=== PATIENT | female | born 1990 | race Caucasian/White ===

== ENCOUNTER 2016-05-06 19:59 | Emergency (ER) | payer SELFPAY | END 2016-05-06 20:11 | disposition left against medical advice (07) | LOC: UCCORT 19:59 | DX: M79.1 Myalgia (principal); R05 Cough; Z53.21 Procedure and treatment not carried out due to patient leaving prior to being seen by health care provider ==

== ENCOUNTER 2016-05-06 20:28 | Emergency (ER) | payer SELFPAY | END 2016-05-06 20:41 | disposition left against medical advice (07) | LOC: UCCORT 20:28 | DX: M79.1 Myalgia (principal); R05 Cough; R09.89 Other specified symptoms and signs involving the circulatory and respiratory systems; Z53.21 Procedure and treatment not carried out due to patient leaving prior to being seen by health care provider ==

== ENCOUNTER 2016-10-24 13:50 | Emergency (ER) | payer OTHER ==
[2016-10-24 14:14] VITALS: BP 103/55
--- NOTE | 2016-10-24 14:27 | UC ---
Back Pain HPI - HPI Summary HPI Summary: MID LOWER BACK PAIN X 1 DAY INJURY TO LOWER BACK SHE WAS CATCHING HER SON SEVER PAIN , NO RADIATION OF THE PAIN , NO WEAKNESS OF LOWER EXT, NO NUMBNESS , NO URINARY SX. - History of Current Complaint Chief Complaint: UCBackPain Stated Complaint: LOWER BACK PAIN Time Seen by Provider: 10/24/16 14:01 Hx Obtained From: Patient Hx Last Menstrual Period: 09/22/16 ?: No Onset/Duration: Sudden Onset, Lasting Days - 1, Still Present Timing: Constant Severity Initially: Severe Severity Currently: Severe Back Pain: Is Discrete @ - MID LOWER BACK Character: Aching, Throbbing Aggravating: Movement, Lifting, Bending, Walking, Cough Alleviating: Rest Associated Signs And Symptoms: Negative: Swelling, Redness, Bruising, Fever, Weakness, Numbness, Tingling, Abdominal Pain, Flank Pain, Bladder Incontinence, Bowel Incontinence - Allergies/Home Medications Allergies/Adverse Reactions: Allergies Allergy/AdvReac Type Severity Reaction Status Date / Time No Known Allergies Allergy Verified 10/17/15 15:21 Home Medications: Home Medications Nuvaring 10/24/16 [History] PMH/Surg Hx/FS Hx/Imm Hx Previously Healthy: Yes - Surgical History Surgical History: None Surgery Procedure, Year, and Place: None - Family History Known Family History: Positive: None, Diabetes - Social History Alcohol Use: None Substance Use Type: None Smoking Status (MU): Light Every Day Tobacco Smoker Type: Cigarettes Amount Used/How Often: 2 CIGS PER DAY Length of Time of Smoking/Using Tobacco: 12 years Have You Smoked in the Last Year: Yes Household Exposure Type: Cigarettes Review of Systems Constitutional: Negative Skin: Negative Eyes: Negative ENT: Negative Respiratory: Negative Is Patient Immunocompromised?: No All Other Systems Reviewed And Are Negative: Yes Physical Exam Triage Information Reviewed: Yes Appearance: Well-Nourished, Pain Distress Vital Signs: Initial Vital Signs Temp 98.2 F 10/24/16 14:08 Pulse 81 10/24/16 14:08 Resp 20 10/24/16 14:08 BP 103/55 10/24/16 14:08 Pulse Ox 99 10/24/16 14:08 Vital Signs Reviewed: Yes Eyes: Positive: Conjunctiva Clear ENT: Positive: Normal ENT inspection, Hearing grossly normal, Pharynx normal Neck: Positive: Supple, Nontender, No Lymphadenopathy Respiratory: Positive: Chest non-tender, Lungs clear, Normal breath sounds Cardiovascular: Positive: RRR, No Murmur, Pulses Normal Abdomen Description: Positive: Nontender, Soft. Negative: CVA Tenderness (R), CVA Tenderness (L), Distended, Guarding Bowel Sounds: Positive: Present Musculoskeletal: Positive: Other: - LOWER BACK: NO SWELLING, NO ERYTHEMA, + TENDERNESS MID LOWER BACK LIMITED ROM ON FLEXION AND EXTENSION Back Pain Course/Dx - Differential Dx/Diagnosis Provider Diagnoses: LOWER BACK STRAIN Discharge - Discharge Plan Condition: Stable Disposition: HOME Prescriptions: Cyclobenzaprine TAB* [Flexeril 10 MG TAB*] 10 mg PO BID #20 tab Naproxen [Naproxen 500 mg] 500 mg PO BID #20 tab Patient Education Materials: Low Back Strain (ED) Referrals: Jean An MD [Primary Care Provider] - 7 Days
== END 2016-10-24 14:35 | disposition home or self-care (01) ==
LOC: UCCORT 13:50
DX: S39.012A Strain of muscle, fascia and tendon of lower back, initial encounter (principal); X50.0XXA Overexertion from strenuous movement or load, initial encounter; Y93.89 Activity, other specified; Y92.9 Unspecified place or not applicable; F17.210 Nicotine dependence, cigarettes, uncomplicated
CPT/HCPCS: 99212; G0463

== ENCOUNTER 2018-03-20 08:52 | Emergency (ER) | payer OTHER ==
[2018-03-20 09:30] VITALS: BP 109/73
[2018-03-20 10:07] LABS: Influenza A Molecular NEGATIVE (Negative); Influenza B Molecular NEGATIVE (Negative)
--- NOTE | 2018-03-20 10:27 | UC ---
FLU HPI - HPI Summary HPI Summary: 27-year-old woman comes in with 3 days of generalized symptoms. She started with low back pain and abdominal pain and diarrhea. She is also nauseous and can't eat or drink anything. Denies any dysuria. Has not seen any blood in the diarrhea. Also complaining of lower chest pain bilaterally it's worse with coughing or breathing. Also has generalized myalgias and a sore throat. - History of Current Complaint Chief Complaint: UCGeneralIllness Stated Complaint: LOWER BACK PAIN,CHEST CONGESTION,COUGH Time Seen by Provider: 03/20/18 10:17 Hx Last Menstrual Period: 02/09/18 Pain Intensity: 8 - Allergy/Home Medications Allergies/Adverse Reactions: Allergies Allergy/AdvReac Type Severity Reaction Status Date / Time No Known Allergies Allergy Verified 03/20/18 09:25 Home Medications: Home Medications Etonogest/Eth.estradiol (Nf) [Nuvaring Vaginal Ring] 1 each VAGINAL .SEE COMMENTS 03/20/18 [History Confirmed 03/20/18] Iron,Carbonyl [Iron Chews Pediatric] 30 mg PO DAILY 03/20/18 [History Confirmed 03/20/18] PMH/Surg Hx/FS Hx/Imm Hx Previously Healthy: Yes - Surgical History Surgical History: None Surgery Procedure, Year, and Place: None - Family History Known Family History: Positive: None, Diabetes - Social History Alcohol Use: None Substance Use Type: None Smoking Status (MU): Light Every Day Tobacco Smoker Type: Cigarettes Amount Used/How Often: ~1/4 PPD Length of Time of Smoking/Using Tobacco: Since Age 13 Have You Smoked in the Last Year: Yes Household Exposure Type: Cigarettes Review of Systems All Other Systems Reviewed And Are Negative: Yes Constitutional: Positive: Fever, Chills Skin: Positive: Negative Eyes: Positive: Negative ENT: Positive: Sore Throat, Nasal Discharge, Sinus Congestion Respiratory: Positive: Shortness Of Breath Cardiovascular: Positive: Chest Pain Gastrointestinal: Positive: Abdominal Pain, Vomiting, Diarrhea, Nausea Genitourinary: Positive: Negative Motor: Positive: Negative Neurovascular: Positive: Negative Musculoskeletal: Positive: Myalgia Neurological: Positive: Negative Psychological: Positive: Negative Is Patient Immunocompromised?: No Physical Exam Triage Information Reviewed: Yes Appearance: Well-Nourished, Ill-Appearing - MILD/MODERATE, Pain Distress - WITH PALPATION OF BACK OR ABDOMEN Vital Signs: Initial Vital Signs Temp 98 F 03/20/18 09:23 Pulse 80 03/20/18 09:23 Resp 16 03/20/18 09:23 BP 109/73 03/20/18 09:23 Pulse Ox 100 03/20/18 09:23 Vital Signs Reviewed: Yes Eye Exam: Normal Eyes: Positive: Conjunctiva Clear ENT: Positive: Pharyngeal erythema, Nasal congestion, Nasal drainage, TMs normal Neck exam: Normal Neck: Positive: Supple Respiratory: Positive: Lungs clear, Normal breath sounds, No respiratory distress Cardiovascular: Positive: RRR Abdomen Description: Positive: Other: - Tender to palpation primarily in the lower abdomen in the midline. Positive bowel sounds. Patient is also tender in her flanks bilaterally. Bowel Sounds: Positive: Present Musculoskeletal Exam: Normal Musculoskeletal: Positive: Strength Intact, ROM Intact Neurological Exam: Normal Neurological: Positive: Alert, Muscle Tone Normal Psychological Exam: Normal Psychological: Positive: Age Appropriate Behavior Skin Exam: Normal Flu Course/Dx - Course Course Of Treatment: With the patient's constellation of symptoms and her influenza being negative I do not have an explanation for her generalized symptoms. This difficult to tell if it's primarily an abdominal concern or kidney or chest. Due to the complexity of the symptoms and our inability to do timely work I recommended going directly to the emergency department for further evaluation and treatment which the patient agreed to. - Differential Dx/Diagnosis Provider Diagnosis: Chest pain, Bilateral flank pain, Abdominal pain, lower Discharge - Sign-Out/Discharge Documenting (check all that apply): Patient Departure All imaging exams completed and their final reports reviewed: No Studies - Discharge Plan Condition: Stable Disposition: HOME-RECOMMEND TO ED Patient Education Materials: Chest Pain (ED), Abdominal Pain (ED), Flank Pain ( ED) Forms: *Work Release Referrals: Jean An MD [Primary Care Provider] - Additional Instructions: GO DIRECTLY TO THE EMERGENCY DEPARTMENT FOR FURTHER EVALUATION. - Billing Disposition and Condition Condition: STABLE Disposition: Home-Recommend to ED
== END 2018-03-20 10:32 | disposition home health service (06) ==
LOC: UCCORT 08:52
DX: R10.30 Lower abdominal pain, unspecified (principal); R07.89 Other chest pain; M54.5 Low back pain; R19.7 Diarrhea, unspecified; F17.210 Nicotine dependence, cigarettes, uncomplicated; R11.2 Nausea with vomiting, unspecified
CPT/HCPCS: 99212; G0463